=== PATIENT | male | born 1995 | race African-American/Black ===

== ENCOUNTER 2020-06-07 10:48 | Emergency (ER) | payer OTHER ==
[~2020-06-07] VITALS: Ht 175.3 cm; Wt 84.0 kg
[~2020-06-07 10:48] MED LIST: ALBUTEROL
[2020-06-07 11:01] VITALS: BP 121/72
[2020-06-07 12:09] LABS: BASOPHILS % 0.7 % (0.0-2.0); EOSINOPHILS % 2.1 % (0.0-5.0); HEMATOCRIT. 48.6 % (42.0-52.0); HEMOGLOBIN. 16.4 g/dL (14.0-18.0); LYMPHOCYTES % 44.3 % (20.0-50.0); MEAN CORPUSCULAR HEMOGLOBIN 29.6 pg (28.0-32.0); MEAN PLATELET VOLUME 7.9 fl (7.4-10.4); MONOCYTES % 8.5 % (2.0-8.0); NEUTROPHILS % 44.4 % (40.0-76.0); PLATELET 223 x1000/uL (130-400); RED BLOOD CELL COUNT 5.52 mill/uL (4.7-6.1); RED CELL DISTRIBUTION WIDTH 12.9 % (11.6-14.6)
[2020-06-07 12:16] LABS: CHLORIDE 107 mEq/L (98-107)
== END 2020-06-07 13:19 | disposition home or self-care (01) ==
LOC: ER 10:48
DX: K02.9 Dental caries, unspecified (principal); G51.39 Clonic hemifacial spasm, unspecified
CPT/HCPCS: 36415; 80048; 85025; 99283

== ENCOUNTER 2024-09-14 12:17 | Emergency (ER) | payer OTHER ==
[~2024-09-14] VITALS: Ht 177.8 cm; Wt 91.0 kg
[2024-09-14 12:27] VITALS: O2SAT 97
[2024-09-14 12:32] VITALS: BP 140/71; PULSE 100; RESP 14; TEMP 36.9; O2SAT 96
[2024-09-14] MEDS ORDERED: CLIN45GE10 TP (13:22)
== END 2024-09-14 13:43 | disposition home or self-care (01) ==
LOC: ER 12:17
DX: L73.9 Follicular disorder, unspecified (principal)
CPT/HCPCS: 99283